=== PATIENT | female | born 1955 | race Caucasian/White ===

== ENCOUNTER 2019-03-03 13:02 | Inpatient (IN) | payer OTHER ==
--- NOTE | 2019-03-03 13:30 | Emergency Department Report ---
Chief Complaint: High BP Stated Complaint: BP HIGH - HPI History of Present Illness: 63yo Female (language barrier) presents with CP and elevated BP x 1 day. She states that she has been taking her medication as directed. - Exam Vital Signs: Vital Signs 03/03/19 13:25 Pulse Rate 65 Respiratory 16 Rate Blood Pressure 175/68 [Left] O2 Sat by Pulse 99 Oximetry MSE screening note: Focused history and physical exam performed. Due to findings the following was ordered: ED Disposition for MSE Condition: Stable
[2019-03-03] MEDS ORDERED: ASPIRIN 325 MG TAB PO ONE (13:33)
--- NOTE | 2019-03-03 13:50 | XRay Report ---
CHEST 1 VIEW INDICATION: Chest Pain. COMPARISON: None. FINDINGS: Support devices: None. Heart: Within normal limits. Lungs/Pleura: No acute air space or interstitial disease. Additional findings: None. IMPRESSION: 1. No acute findings. Signer Name: Jorge Fleming MD Signed: 03/03/2019 1:46 PM Workstation Name: [id number]
[2019-03-03 14:08] LABS: Basophils # (Auto) 0.1 K/mm3 (0.0-0.1); Basophils % (Auto) 0.9 % (0.0-1.8); Eosinophils # (Auto) 0.1 K/mm3 (0.0-0.4); Eosinophils % (Auto) 0.8 % (0.0-4.3); Hematocrit 38.6 % (30.3-42.9); Hemoglobin 13.2 gm/dl (10.1-14.3); Lymphocytes # (Auto) 2.4 K/mm3 (1.2-5.4); Lymphocytes % (Auto) 35.9 % (13.4-35.0); Mean Corpuscular HGB Conc 34 % (30-34); Mean Corpuscular Volume 88 fl (79-97); Monocytes # (Auto) 0.5 K/mm3 (0.0-0.8); Monocytes % (Auto) 7.8 % (0.0-7.3); Platelet Count 218 K/mm3 (140-440); Red Blood Count 4.38 M/mm3 (3.65-5.03); Red Cell Distribution Width 13.2 % (13.2-15.2)
[2019-03-03 14:29] LABS: BUN/Creatinine Ratio 24; Blood Urea Nitrogen 17 mg/dL (7-17); Calcium 9.4 mg/dL (8.4-10.2); Hemolysis Index 1
--- NOTE | 2019-03-03 15:07 | Emergency Department Report ---
ED Chest Pain HPI - General Chief Complaint: High BP Stated Complaint: BP HIGH Time Seen by Provider: 03/03/19 14:35 Source: patient Mode of arrival: Ambulatory Limitations: Language Barrier - History of Present Illness Initial Comments: 63-year-old female with a past medical history of hypertension presents to the hospital complaining of chest pain intermittent times one week. Pain is substernal and left-sided, feels like a squeezing, with no aggravating or alleviating factors. Patient has intermittent nausea without vomiting. She denies shortness of breath, diaphoresis, calf tenderness, leg edema, or recent travel, hx of dvt/pe, or smoking. + FHX of CAD. Patient has had palpitations for 3-4 months. Patient wore a holter monitor and had it removed recently. She is scheduled for oupt stress test and echo 03/07. Severity scale (0 -10): 5 - Related Data Allergies Allergy/AdvReac Type Severity Reaction Status Date / Time No Known Allergies Allergy Verified 03/03/19 13:31 Heart Score - HEART Score History: Moderately suspicious EKG: Normal Age: 45-65 Risk factors: 1-2 risk factors Troponin: < normal limit HEART Score: 3 ED Review of Systems ROS: Stated complaint: BP HIGH Other details as noted in HPI Comment: All other systems reviewed and negative ED Past Medical Hx - Past Medical History Previous Medical History?: Yes Hx Hypertension: Yes - Social History Smoking Status: Never Smoker Substance Use Type: None ED Physical Exam - General Limitations: Language Barrier - Other Other exam information: General: No acute distress Head: Atraumatic Eyes: normal appearance ENT: Moist mucous membranes Neck: Normal appearance, no midline tenderness Chest: Clear to auscultation bilaterally CV: Regular rate and rhythm Abdomen: Soft, normal bowel sounds, nontender, nondistended, no rebound or guarding Back: Normal inspection Extremity: Normal inspection infection, full range of motion, no calf tenderness or leg edema Neuro: Alert O x 3, no facial asymmetry, speech clear, no gross motor sensory deficit Psych: Appropriate behavior Skin: No rash ED Course Vital Signs 03/03/19 03/03/19 13:25 14:54 Pulse Rate 65 Respiratory 16 17 Rate Blood Pressure 175/68 [Left] O2 Sat by Pulse 99 99 Oximetry - Consultations Consultation #1: 03/03/19 14:52 Is discussed with Pakeitha White gurinder card. Patient will be admitted for inpatient workup ALL score - All Score Age > 65: (0) No Aspirin use within the Past 7 Days: (0) No 3 or more CAD Risk Factors: (0) No 2 or more Angina events in past 24 hrs: (1) Yes Known CAD with more than 50% Stenosis: (0) No Elevated Cardiac Markers: (0) No ED Medical Decision Making - Lab Data Result diagrams: 03/03/19 13:47 03/03/19 13:47 Lab Results 03/03/19 03/03/19 Range/Units 13:47 13:47 WBC 6.7 (4.5-11.0) K/mm3 RBC 4.38 (3.65-5.03) M/mm3 Hgb 13.2 (10.1-14.3) gm/dl Hct 38.6 (30.3-42.9) % MCV 88 (79-97) fl MCH 30 (28-32) pg MCHC 34 (30-34) % RDW 13.2 (13.2-15.2) % Plt Count 218 (140-440) K/mm3 Lymph % (Auto) 35.9 H (13.4-35.0) % [place] % (Auto) 7.8 H (0.0-7.3) % Eos % (Auto) 0.8 (0.0-4.3) % Baso % (Auto) 0.9 (0.0-1.8) % Lymph # 2.4 (1.2-5.4) K/mm3 [place] # 0.5 (0.0-0.8) K/mm3 Eos # 0.1 (0.0-0.4) K/mm3 Baso # 0.1 (0.0-0.1) K/mm3 Seg Neutrophils % 54.6 (40.0-70.0) % Seg Neutrophils # 3.7 (1.8-7.7) K/mm3 Sodium 142 (137-145) mmol/L Potassium 4.1 (3.6-5.0) mmol/L Chloride 105.8 (98-107) mmol/L Carbon Dioxide 24 (22-30) mmol/L Anion Gap 16 mmol/L BUN 17 (7-17) mg/dL Creatinine 0.7 (0.7-1.2) mg/dL Estimated GFR > 60 ml/min BUN/Creatinine Ratio 24 % Glucose 107 H (65-100) mg/dL Calcium 9.4 (8.4-10.2) mg/dL Troponin T < 0.010 (0.00-0.029) ng/mL - EKG Data -: EKG Interpreted by Me EKG shows normal: sinus rhythm, QRS complexes Rate: bradycardia (59) - EKG Data When compared to previous EKG there are: previous EKG unavailable - Radiology Data Radiology results: report reviewed CHEST 1 VIEW INDICATION: Chest Pain. COMPARISON: None. FINDINGS: Support devices: None. Heart: Within normal limits. Lungs/Pleura: No acute air space or interstitial disease. Additional findings: None. IMPRESSION: 1. No acute findings. - Medical Decision Making She presents with intermittent chest pain. - Differential Diagnosis UT, unstable angina, arrhythmia, Critical Care Time: No Critical care attestation.: If time is entered above; I have spent that time in minutes in the direct care of this critically ill patient, excluding procedure time. ED Disposition Clinical Impression: Chest pain, HTN (hypertension), Palpitations Disposition: DC-09 OP ADMIT IP TO THIS HOSP Is pt being admited?: Yes Does the pt Need Aspirin: Yes Condition: Stable Time of Disposition: 15:08 (Dr Lal/hosp)
[2019-03-03] MEDS ORDERED: NITROGLYCERIN 0.4 MG TAB SUBL SL PRN (15:14)
[2019-03-03] MEDS ORDERED: ALBUTEROL 2.5 MG/3 ML NEBU IH PRN (15:14)
[2019-03-03] MEDS ORDERED: ONDANSETRON 4 MG/2 ML INJ IV PRN (15:14)
--- NOTE | 2019-03-03 15:14 | History and Physical Report ---
History of Present Illness Chief complaint: My chest hurts History of present illness: 63 YO Female with HTN presents to ED for evaluation. Pt states that she has experienced pain in her chest over the past 1 week, with increasing intensity and frequency of the pain over the past 2 days. Pt states that pain is 5-6/10, substernal, crushing in nature, associated with nausea, and feels like "weight is on my chest". Pt denies worsening with exertion or relief with rest. Pt notified her PCP who then instructed pt to seek further care at [facility]. Pt transported to [facility] via private vehicle. Pt seen and evaluated in ED and found to have Angina. Pt placed in Observation status and admitted to telemetry. Cardiology team consulted in ED. Pt denies fever, chills, palpitations, BRBPR, Productive cough, unilateral leg swelling, calf pain, prolonged travel/immobility, hemoptysis, individual/family history of DVT/PE/Bleeding/B lood Clotting Disorders. No prior admission for review. No medication listed for reconciliation at time of admission. Past History Past Medical History: hypertension Past Surgical History: No surgical history, Other (reviewed) Social history: single. denies: smoking, alcohol abuse, prescription drug abuse Family history: diabetes, hypertension Medications and Allergies Allergies Allergy/AdvReac Type Severity Reaction Status Date / Time No Known Allergies Allergy Verified 03/03/19 13:31 Review of Systems Constitutional: no weight loss, no weight gain, no fever, no chills Ears, nose, mouth and throat: no ear pain, no ear discharge, no decreased hearing, no nose pain Breasts: no change in shape, no swelling, no mass Cardiovascular: no chest pain, no orthopnea, no palpitations, no rapid/irregular heart beat Respiratory: no cough, no cough with sputum, no excessive sputum, no hemoptysis Gastrointestinal: no abdominal pain, no nausea, no vomiting, no diarrhea, no constipation Genitourinary Female: no dysmenorrhea, no pelvic pain, no flank pain, no menorrhagia, no dysuria, no urinary frequency, no urgency, no stress incontinence Rectal: no pain, no incontinence, no bleeding Musculoskeletal: no neck pain, no shooting arm pain, no arm numbness/tingling, no low back pain, no shooting leg pain Integumentary: no rash, no pruritis, no redness, no sores, no wounds Neurological: no transient paralysis, no paralysis, no weakness, no parathesias, no numbness, no tingling, no seizures, no syncope Psychiatric: no anxiety, no memory loss, no change in sleep habits, no insomnia, no hypersomnia, no change in appetite, no suicidal ideation Endocrine: no cold intolerance, no heat intolerance, no polyphagia, no excessive thirst, no polydipsia, no polyuria, no excessive sweating Hematologic/Lymphatic: no easy bruising, no easy bleeding, no lymphadenopathy, no lymphedema Allergic/Immunologic: no urticaria, no allergic rhinitis, no persistent infections, no anaphylaxis, no angioedema Exam - Constitutional Vitals: Temp Pulse Resp BP Pulse Ox 65 17 175/68 99 03/03/19 13:25 03/03/19 14:54 03/03/19 13:25 03/03/19 14:54 General appearance: Present: mild distress - EENT Eyes: Present: PERRL ENT: hearing intact, clear oral mucosa - Neck Neck: Present: supple, normal ROM - Respiratory Respiratory effort: normal Respiratory: bilateral: CTA - Cardiovascular Heart Sounds: Present: S1 & S2. Absent: rub, click - Extremities Extremities: pulses symmetrical, No edema Peripheral Pulses: within normal limits - Abdominal General gastrointestinal: Present: soft, non-tender, non-distended, normal bowel sounds Female genitourinary: Present: normal - Integumentary Integumentary: Present: clear, warm, dry - Musculoskeletal Musculoskeletal: gait normal, strength equal bilaterally - Psychiatric Psychiatric: appropriate mood/affect, intact judgment & insight - Neurologic Neurologic: CNII-XII intact, moves all extremities Results - Labs CBC & Chem 7: 03/03/19 13:47 03/03/19 13:47 Labs: Abnormal lab results 03/03/19 03/03/19 Range/Units 13:47 13:47 Lymph % (Auto) 35.9 H (13.4-35.0) % [place] % (Auto) 7.8 H (0.0-7.3) % Glucose 107 H (65-100) mg/dL Assessment and Plan - Patient Problems (1) Angina at rest Current Visit: Yes Status: Acute Plan to address problem: Admit to telemetry, serial cardiac enzymes, ekg, cardiology consulted in ED, (2) HTN (hypertension) Current Visit: Yes Status: Acute Qualifiers: Hypertension type: essential hypertension Qualified Code(s): I10 - Essential (primary) hypertension Plan to address problem: Monitor bp q shift, continue medical management. (3) DVT prophylaxis Current Visit: Yes Status: Acute Plan to address problem: SCD to BLE while in bed, Pt ambulatory
[2019-03-03] MEDS ORDERED: ASPIRIN 81 MG TAB CHEW PO STA (15:21)
[2019-03-03 16:47] LABS: Chol/HDL Ratio 4.05 %
[2019-03-03] MEDS: FAMOTIDINE 10 MG TAB PO SCH (21:33)
[2019-03-04 05:05] LABS: Basophils # (Auto) 0.1 K/mm3 (0.0-0.1); Basophils % (Auto) 0.9 % (0.0-1.8); Eosinophils # (Auto) 0.1 K/mm3 (0.0-0.4); Eosinophils % (Auto) 1.9 % (0.0-4.3); Hematocrit 37.5 % (30.3-42.9); Hemoglobin 12.7 gm/dl (10.1-14.3); Lymphocytes # (Auto) 2.9 K/mm3 (1.2-5.4); Lymphocytes % (Auto) 44.9 % (13.4-35.0); Mean Corpuscular HGB Conc 34 % (30-34); Mean Corpuscular Volume 89 fl (79-97); Monocytes # (Auto) 0.5 K/mm3 (0.0-0.8); Monocytes % (Auto) 8.4 % (0.0-7.3); Platelet Count 198 K/mm3 (140-440); Red Blood Count 4.21 M/mm3 (3.65-5.03); Red Cell Distribution Width 13.2 % (13.2-15.2)
[2019-03-04 05:29] LABS: Alanine Aminotransferase 16 units/L (7-56); Albumin 3.9 g/dL (3.9-5); BUN/Creatinine Ratio 35; Blood Urea Nitrogen 21 mg/dL (7-17); Calcium 8.9 mg/dL (8.4-10.2); Hemolysis Index 5
[2019-03-04] MEDS: FAMOTIDINE 10 MG TAB PO SCH ×2 (09:13→22:31)
[2019-03-04] MEDS: ACETAMINOPHEN 325 MG TAB PO PRN ×2 (09:13→18:41)
--- NOTE | 2019-03-04 10:34 | Consultation ---
History of Present Illness Consult date: 03/04/19 Consult reason: chest pain History of present illness: 63 year old female presenting with chest pain at rest was admitted for evaluation. She also has back pain with radiation of pain down her right leg. Past History Past Medical History: hypertension Past Surgical History: No surgical history, Other (reviewed) Social history: single. denies: smoking, alcohol abuse, prescription drug abuse Family history: diabetes, hypertension Medications and Allergies Allergies Allergy/AdvReac Type Severity Reaction Status Date / Time No Known Allergies Allergy Verified 03/03/19 13:31 Home Medications Medication Instructions Recorded Confirmed Last Taken Type Bisoprolol Fumarate 2.5 mg PO BID 03/03/19 03/03/19 Unknown History Active Meds: Active Medications Acetaminophen (Tylenol) 650 mg PO Q4H PRN PRN Reason: Pain MILD(1-3)/Fever >100.5/BRADLEY Last Admin: 03/04/19 09:13 Dose: 650 mg Documented by: Albuterol (Proventil) 2.5 mg IH Q4HRT PRN PRN Reason: Shortness Of Breath Famotidine (Pepcid) 10 mg PO BID [facility] Last Admin: 03/04/19 09:13 Dose: 10 mg Documented by: Morphine Sulfate (Morphine) 2 mg IV Q4H PRN PRN Reason: Pain, Moderate (4-6) Nitroglycerin (Nitrostat) 0.4 mg SL Q5M PRN PRN Reason: Chest Pain Ondansetron HCl (Zofran) 4 mg IV Q8H PRN PRN Reason: Nausea And Vomiting Sodium Chloride (Sodium Chloride Flush Syringe 10 Ml) 10 ml IV BID [facility] Last Admin: 03/04/19 09:14 Dose: 10 ml Documented by: Sodium Chloride (Sodium Chloride Flush Syringe 10 Ml) 10 ml IV PRN PRN PRN Reason: LINE FLUSH Review of Systems All systems: negative Cardiovascular: chest pain Musculoskeletal: low back pain Physical Examination Vital Signs Pulse Resp BP Pulse Ox 65 16 175/68 99 03/03/19 13:25 03/03/19 13:25 03/03/19 13:25 03/03/19 13:25 General appearance: no acute distress, well-nourished HEENT: Positive: PERRL, Mucus Membranes Moist Neck: Positive: neck supple, trachea midline Cardiac: Positive: Reg Rate and Rhythm, S1/S2. Negative: Audible Murmur Lungs: Positive: clear to auscultation, Normal Breath Sounds Neuro: Positive: Grossly Intact Abdomen: Positive: Soft, Active Bowel Sounds. Negative: Tender, Distended Female genitourinary: deferred Skin: Positive: Clear Incision: Cardiac Cath Site Musculoskeletal: No Pain, Normal Range of Motion Extremities: Present: normal. Absent: edema Results 03/04/19 04:40 03/04/19 04:40 Cardiac Enzymes 03/04/19 Range/Units 04:40 AST 18 (5-40) units/L Lipids 03/03/19 Range/Units 15:27 Triglycerides 115 (2-149) mg/dL Cholesterol 231 H (50-199) mg/dL HDL Cholesterol 57 (40-59) mg/dL Cholesterol/HDL Ratio 4.05 % CBC 03/03/19 03/04/19 Range/Units 13:47 04:40 WBC 6.7 6.5 (4.5-11.0) K/mm3 RBC 4.38 4.21 (3.65-5.03) M/mm3 Hgb 13.2 12.7 (10.1-14.3) gm/dl Hct 38.6 37.5 (30.3-42.9) % Plt Count 218 198 (140-440) K/mm3 Lymph # 2.4 2.9 (1.2-5.4) K/mm3 [place] # 0.5 0.5 (0.0-0.8) K/mm3 Eos # 0.1 0.1 (0.0-0.4) K/mm3 Baso # 0.1 0.1 (0.0-0.1) K/mm3 Comprehensive Metabolic Panel 03/03/19 03/04/19 Range/Units 13:47 04:40 Sodium 142 142 (137-145) mmol/L Potassium 4.1 4.4 (3.6-5.0) mmol/L Chloride 105.8 105.8 (98-107) mmol/L Carbon Dioxide 24 24 (22-30) mmol/L BUN 17 21 H (7-17) mg/dL Creatinine 0.7 0.6 L (0.7-1.2) mg/dL Glucose 107 H 99 (65-100) mg/dL Calcium 9.4 8.9 (8.4-10.2) mg/dL AST 18 (5-40) units/L ALT 16 (7-56) units/L Alkaline Phosphatase 57 (35-129) units/L Total Protein 6.2 L (6.3-8.2) g/dL Albumin 3.9 (3.9-5) g/dL - EKG Interpretation EKG: sinus rhythm, normal axis EKG interpretations - Telemetry EKG Rhythm: Sinus Rhythm Assessment and Plan 1. Atypical chest pain 2. Essential hypertension 3. Lumbar global with sciatica right leg 4. Hyperlipidemia Plan. Currently chest pain-free patient's serum troponin levels so far are negative we will recommend checking echocardiogram as well aswell as stress Lexiscan MPI
--- NOTE | 2019-03-04 12:17 | Progress Note ---
Assessment and Plan Assessment and plan: Chest pain. Troponin levels are negative. EKG within normal limits. Cardiology recommends echocardiogram and Lexiscan stress test. Hypertension. Continue antihypertensive medications. Sciatica. Continue pain control. Supportive care Hyperlipidemia. Start Lipitor daily. History Interval history: No new issues overnight. Hospitalist Physical - Constitutional Vitals: Temp Pulse Resp BP Pulse Ox 97.9 F 64 16 121/54 96 03/04/19 08:00 03/04/19 08:00 03/04/19 08:00 03/04/19 08:00 03/04/19 08:00 General appearance: Present: no acute distress, well-nourished - EENT Eyes: Present: PERRL, EOM intact ENT: hearing intact, clear oral mucosa, dentition normal - Neck Neck: Present: supple, normal ROM - Respiratory Respiratory effort: normal Respiratory: bilateral: CTA - Cardiovascular Rhythm: regular Heart Sounds: Present: S1 & S2. Absent: gallop, rub - Extremities Extremities: no ischemia, No edema, Full ROM - Abdominal General gastrointestinal: soft, non-tender, non-distended, normal bowel sounds - Integumentary Integumentary: Present: clear, warm, dry - Neurologic Neurologic: CNII-XII intact, moves all extremities Results - Labs CBC & Chem 7: 03/04/19 04:40 03/04/19 04:40 Labs: Laboratory Last Values WBC 6.5 K/mm3 (4.5-11.0) 03/04/19 04:40 RBC 4.21 M/mm3 (3.65-5.03) 03/04/19 04:40 Hgb 12.7 gm/dl (10.1-14.3) 03/04/19 04:40 Hct 37.5 % (30.3-42.9) 03/04/19 04:40 MCV 89 fl (79-97) 03/04/19 04:40 MCH 30 pg (28-32) 03/04/19 04:40 MCHC 34 % (30-34) 03/04/19 04:40 RDW 13.2 % (13.2-15.2) 03/04/19 04:40 Plt Count 198 K/mm3 (140-440) 03/04/19 04:40 Lymph % (Auto) 44.9 % (13.4-35.0) H 03/04/19 04:40 [place] % (Auto) 8.4 % (0.0-7.3) H 03/04/19 04:40 Eos % (Auto) 1.9 % (0.0-4.3) 03/04/19 04:40 Baso % (Auto) 0.9 % (0.0-1.8) 03/04/19 04:40 Lymph # 2.9 K/mm3 (1.2-5.4) 03/04/19 04:40 [place] # 0.5 K/mm3 (0.0-0.8) 03/04/19 04:40 Eos # 0.1 K/mm3 (0.0-0.4) 03/04/19 04:40 Baso # 0.1 K/mm3 (0.0-0.1) 03/04/19 04:40 Seg Neutrophils % 43.9 % (40.0-70.0) 03/04/19 04:40 Seg Neutrophils # 2.8 K/mm3 (1.8-7.7) 03/04/19 04:40 D-Dimer 136.80 ng/mlDDU (0-234) 03/03/19 15:27 Sodium 142 mmol/L (137-145) 03/04/19 04:40 Potassium 4.4 mmol/L (3.6-5.0) 03/04/19 04:40 Chloride 105.8 mmol/L (98-107) 03/04/19 04:40 Carbon Dioxide 24 mmol/L (22-30) 03/04/19 04:40 Anion Gap 17 mmol/L 03/04/19 04:40 BUN 21 mg/dL (7-17) H 03/04/19 04:40 Creatinine 0.6 mg/dL (0.7-1.2) L 03/04/19 04:40 Estimated GFR > 60 ml/min 03/04/19 04:40 BUN/Creatinine Ratio 35 % 03/04/19 04:40 Glucose 99 mg/dL (65-100) 03/04/19 04:40 Calcium 8.9 mg/dL (8.4-10.2) 03/04/19 04:40 Total Bilirubin 0.20 mg/dL (0.1-1.2) 03/04/19 04:40 AST 18 units/L (5-40) 03/04/19 04:40 ALT 16 units/L (7-56) 03/04/19 04:40 Alkaline Phosphatase 57 units/L (35-129) 03/04/19 04:40 Troponin T < 0.010 ng/mL (0.00-0.029) 03/03/19 17:53 Total Protein 6.2 g/dL (6.3-8.2) L 03/04/19 04:40 Albumin 3.9 g/dL (3.9-5) 03/04/19 04:40 Albumin/Globulin Ratio 1.7 % 03/04/19 04:40 Triglycerides 115 mg/dL (2-149) 03/03/19 15:27 Cholesterol 231 mg/dL (50-199) H 03/03/19 15:27 LDL Cholesterol Direct 179 mg/dL (50-130) H 03/03/19 15:27 HDL Cholesterol 57 mg/dL (40-59) 03/03/19 15:27 Cholesterol/HDL Ratio 4.05 % 03/03/19 15:27 Active Medications - Current Medications Current Medications: Generic Name Dose Route Start Last Admin Trade Name Freq PRN Reason Stop Dose Admin Acetaminophen 650 mg 03/03/19 15:14 03/04/19 09:13 Tylenol PO 650 mg Q4H PRN Administration Pain MILD(1-3)/Fever >100.5/BRADLEY Albuterol 2.5 mg 03/03/19 15:14 Proventil IH Q4HRT PRN Shortness Of Breath Famotidine 10 mg 03/03/19 22:00 03/04/19 09:13 Pepcid PO 10 mg BID JUDD Administration Morphine Sulfate 2 mg 03/03/19 15:21 Morphine IV Q4H PRN Pain, Moderate (4-6) Nitroglycerin 0.4 mg 03/03/19 15:14 Nitrostat SL Q5M PRN Chest Pain Ondansetron HCl 4 mg 03/03/19 15:14 Zofran IV Q8H PRN Nausea And Vomiting Sodium Chloride 10 ml 03/03/19 22:00 03/04/19 09:14 Sodium Chloride Flush Syringe 10 Ml IV 10 ml BID JUDD Administration Sodium Chloride 10 ml 03/03/19 15:14 Sodium Chloride Flush Syringe 10 Ml IV PRN PRN LINE FLUSH
[2019-03-05] MEDS: MORPHINE 2 MG/1 ML INJ IV PRN ×2 (04:18→10:21)
--- NOTE | 2019-03-05 10:11 | Progress Note ---
Assessment and Plan 1. Atypical chest pain 2. Essential hypertension 3. Lumbar global with sciatica right leg 4. Hyperlipidemia Plan. Currently chest pain-free patient's serum troponin levels so far are negative we will recommend checking echocardiogram as well as well as stress Lexiscan MPI Subjective Date of service: 03/05/19 Principal diagnosis: Chest pains Interval history: No cardiac symptoms. Objective Vital Signs Temp Pulse Resp BP Pulse Ox 03/05/19 08:16 97.9 F 58 L 16 140/62 98 03/05/19 04:11 97.8 F 65 18 136/62 98 03/05/19 02:00 60 03/05/19 00:14 98.5 F 61 18 128/68 96 03/04/19 20:40 18 03/04/19 19:49 98.2 F 62 18 129/63 97 03/04/19 19:13 98 03/04/19 16:11 98.4 F 62 16 117/44 97 03/04/19 12:10 98.2 F 18 03/04/19 12:09 98.7 F 62 18 113/57 95 - Physical Examination General: Appears Well HEENT: Positive: PERRL, Mucus Membranes Moist Neck: Positive: neck supple, trachea midline Cardiac: Positive: Reg Rate and Rhythm, Regular Rate, S1/S2, PMI, Dilated, Laterally Displaced. Negative: S3 Lungs: Positive: clear to auscultation, No Wheeze, Rales, Rhonchi Neuro: Positive: Grossly Intact, No Lateralizing Findings Abdomen: Positive: Soft, Active Bowel Sounds. Negative: Tender, Distended Skin: Positive: Clear Incision: Cardiac Cath Site Musculoskeletal: No Pain, Normal Range of Motion Extremities: Present: normal. Absent: edema
[2019-03-05] MEDS: FAMOTIDINE 10 MG TAB PO SCH ×2 (10:21→21:57)
--- NOTE | 2019-03-05 10:23 | Progress Note ---
Assessment and Plan Assessment and plan: Chest pain. Troponin levels are negative. EKG within normal limits. Cardiology recommends echocardiogram and Lexiscan stress test. Hypertension. Continue antihypertensive medications. Sciatica. Continue pain control. Supportive care Hyperlipidemia. Continue Lipitor daily. History Interval history: No new issues overnight. Hospitalist Physical - Constitutional Vitals: Temp Pulse Resp BP Pulse Ox 97.9 F 58 L 16 140/62 98 03/05/19 08:16 03/05/19 08:16 03/05/19 08:16 03/05/19 08:16 03/05/19 08:16 General appearance: Present: no acute distress, well-nourished - EENT Eyes: Present: PERRL, EOM intact ENT: hearing intact, clear oral mucosa, dentition normal - Neck Neck: Present: supple, normal ROM - Respiratory Respiratory effort: normal Respiratory: bilateral: CTA - Cardiovascular Rhythm: regular Heart Sounds: Present: S1 & S2. Absent: gallop, rub - Extremities Extremities: no ischemia, No edema, Full ROM - Abdominal General gastrointestinal: soft, non-tender, non-distended, normal bowel sounds - Integumentary Integumentary: Present: clear, warm, dry - Neurologic Neurologic: CNII-XII intact, moves all extremities Results - Labs CBC & Chem 7: 03/04/19 04:40 03/04/19 04:40 Labs: Laboratory Last Values WBC 6.5 K/mm3 (4.5-11.0) 03/04/19 04:40 RBC 4.21 M/mm3 (3.65-5.03) 03/04/19 04:40 Hgb 12.7 gm/dl (10.1-14.3) 03/04/19 04:40 Hct 37.5 % (30.3-42.9) 03/04/19 04:40 MCV 89 fl (79-97) 03/04/19 04:40 MCH 30 pg (28-32) 03/04/19 04:40 MCHC 34 % (30-34) 03/04/19 04:40 RDW 13.2 % (13.2-15.2) 03/04/19 04:40 Plt Count 198 K/mm3 (140-440) 03/04/19 04:40 Lymph % (Auto) 44.9 % (13.4-35.0) H 03/04/19 04:40 [place] % (Auto) 8.4 % (0.0-7.3) H 03/04/19 04:40 Eos % (Auto) 1.9 % (0.0-4.3) 03/04/19 04:40 Baso % (Auto) 0.9 % (0.0-1.8) 03/04/19 04:40 Lymph # 2.9 K/mm3 (1.2-5.4) 03/04/19 04:40 [place] # 0.5 K/mm3 (0.0-0.8) 03/04/19 04:40 Eos # 0.1 K/mm3 (0.0-0.4) 03/04/19 04:40 Baso # 0.1 K/mm3 (0.0-0.1) 03/04/19 04:40 Seg Neutrophils % 43.9 % (40.0-70.0) 03/04/19 04:40 Seg Neutrophils # 2.8 K/mm3 (1.8-7.7) 03/04/19 04:40 D-Dimer 136.80 ng/mlDDU (0-234) 03/03/19 15:27 Sodium 142 mmol/L (137-145) 03/04/19 04:40 Potassium 4.4 mmol/L (3.6-5.0) 03/04/19 04:40 Chloride 105.8 mmol/L (98-107) 03/04/19 04:40 Carbon Dioxide 24 mmol/L (22-30) 03/04/19 04:40 Anion Gap 17 mmol/L 03/04/19 04:40 BUN 21 mg/dL (7-17) H 03/04/19 04:40 Creatinine 0.6 mg/dL (0.7-1.2) L 03/04/19 04:40 Estimated GFR > 60 ml/min 03/04/19 04:40 BUN/Creatinine Ratio 35 % 03/04/19 04:40 Glucose 99 mg/dL (65-100) 03/04/19 04:40 Calcium 8.9 mg/dL (8.4-10.2) 03/04/19 04:40 Total Bilirubin 0.20 mg/dL (0.1-1.2) 03/04/19 04:40 AST 18 units/L (5-40) 03/04/19 04:40 ALT 16 units/L (7-56) 03/04/19 04:40 Alkaline Phosphatase 57 units/L (35-129) 03/04/19 04:40 Troponin T < 0.010 ng/mL (0.00-0.029) 03/03/19 17:53 Total Protein 6.2 g/dL (6.3-8.2) L 03/04/19 04:40 Albumin 3.9 g/dL (3.9-5) 03/04/19 04:40 Albumin/Globulin Ratio 1.7 % 03/04/19 04:40 Triglycerides 115 mg/dL (2-149) 03/03/19 15:27 Cholesterol 231 mg/dL (50-199) H 03/03/19 15:27 LDL Cholesterol Direct 179 mg/dL (50-130) H 03/03/19 15:27 HDL Cholesterol 57 mg/dL (40-59) 03/03/19 15:27 Cholesterol/HDL Ratio 4.05 % 03/03/19 15:27 Active Medications - Current Medications Current Medications: Generic Name Dose Route Start Last Admin Trade Name Freq PRN Reason Stop Dose Admin Acetaminophen 650 mg 03/03/19 15:14 03/04/19 18:41 Tylenol PO 650 mg Q4H PRN Administration Pain MILD(1-3)/Fever >100.5/BRADLEY Albuterol 2.5 mg 03/03/19 15:14 Proventil IH Q4HRT PRN Shortness Of Breath Atorvastatin Calcium 40 mg 03/04/19 22:00 03/04/19 22:31 Lipitor PO 40 mg QHS JUDD Administration Famotidine 10 mg 03/03/19 22:00 03/05/19 10:21 Pepcid PO 10 mg BID JUDD Administration Morphine Sulfate 2 mg 03/03/19 15:21 03/05/19 10:21 Morphine IV 2 mg Q4H PRN Administration Pain, Moderate (4-6) Nitroglycerin 0.4 mg 03/03/19 15:14 Nitrostat SL Q5M PRN Chest Pain Ondansetron HCl 4 mg 03/03/19 15:14 Zofran IV Q8H PRN Nausea And Vomiting Sodium Chloride 10 ml 03/03/19 22:00 03/05/19 10:21 Sodium Chloride Flush Syringe 10 Ml IV 10 ml BID JUDD Administration Sodium Chloride 10 ml 03/03/19 15:14 Sodium Chloride Flush Syringe 10 Ml IV PRN PRN LINE FLUSH
[2019-03-05] MEDS: ACETAMINOPHEN 325 MG TAB PO PRN (12:01)
[2019-03-06] MEDS ORDERED: REGADENOSON 0.4 MG/5 ML INJ IV ONE ×2 (07:12→07:20)
[2019-03-06] MEDS: FAMOTIDINE 10 MG TAB PO SCH (11:13)
--- NOTE | 2019-03-06 12:25 | Discharge Summary ---
Providers - Providers Date of Admission: 03/03/19 15:14 Date of discharge: 03/06/19 Attending physician: NIK JIM 03/03/19 Consult to Cardiac Rehabilitation [CONS] Routine Reason For Exam: Phase I 03/03/19 14:52 Consult to Physician [CONS] Urgent Comment: Consulting Provider: JALEEL HAMMOND Physician Instructions: Reason For Exam: chest pain Hospitalization Reason for admission: chest pain Condition: Stable Hospital course: 63-year-old female with past medical history of hypertension presented through the emergency department with complaints of chest pain for approximately one week prior to admission. The patient described the pain as 5-6/10, substernal, crushing in nature, associated with nausea, and of a pressure quality. EKG and cardiac isoenzymes were found to be negative. Cardiology was consulted and recommended stress test and echocardiogram. Echocardiogram revealed global left ventricular systolic function normal with EF of 55-60%. Stress test was completed this morning and if negative patient will be discharged home. Etiology of chest pain likely GERD. Dedicated discharge time 35 minutes. Disposition: TO HOME OR SELFCARE Time spent for discharge: 35 - Discharge Diagnoses (1) Chest pain Status: Acute (2) HTN (hypertension) Status: Acute Qualifiers: Hypertension type: essential hypertension Qualified Code(s): I10 - Essential (primary) hypertension (3) GERD (gastroesophageal reflux disease) Status: Acute Core Measure Documentation - Palliative Care Palliative Care/ Comfort Measures: Not Applicable - Core Measures Any of the following diagnoses?: none Exam - Constitutional Vitals: Temp Pulse Resp BP Pulse Ox 98.0 F 65 18 135/58 96 03/06/19 08:22 03/06/19 04:01 03/06/19 08:22 03/06/19 08:22 03/06/19 04:01 General appearance: Present: no acute distress, well-nourished - EENT Eyes: Present: PERRL ENT: hearing intact, clear oral mucosa - Neck Neck: Present: supple, normal ROM - Respiratory Respiratory effort: normal Respiratory: bilateral: CTA - Cardiovascular Heart Sounds: Present: S1 & S2. Absent: rub, click - Extremities Extremities: pulses symmetrical, No edema Peripheral Pulses: within normal limits - Abdominal General gastrointestinal: Present: soft, non-tender, non-distended, normal bowel sounds Female genitourinary: Present: normal - Integumentary Integumentary: Present: clear, warm, dry - Musculoskeletal Musculoskeletal: gait normal, strength equal bilaterally - Psychiatric Psychiatric: appropriate mood/affect, intact judgment & insight - Neurologic Neurologic: CNII-XII intact, moves all extremities Plan Activity: advance as tolerated Weight Bearing Status: Weight Bear as Tolerated Diet: regular Follow up with: JALEEL HADDAD MD [Other] - 7 Days
[2019-03-06 12:33] VITALS: BP 135/63
--- NOTE | 2019-03-06 13:37 | Progress Note ---
Assessment and Plan - Patient Problems (1) HTN (hypertension) Current Visit: Yes Status: Acute Qualifiers: Hypertension type: essential hypertension Qualified Code(s): I10 - Essential (primary) hypertension Plan to address problem: Hypertension which is a primary reason for presentation, is better controlled on medical therapy. Continue current antihypertensive regimen and discharge with c lose outpatient follow-up. (2) Atypical chest pain Current Visit: Yes Status: Acute Plan to address problem: Chest pain is atypical, serial ECGs are normal. Patient underwent a Lexiscan thallium stress test, results pending. Subjective Date of service: 03/06/19 Principal diagnosis: Chest pains Interval history: The patient is a 63-year-old speaking female, who was actually referred to the emergency room by her PCP for management of uncontrolled hypertension. While in the hospital, she reported some chest pain during review of systems, which prompted a recommendation for admission and cardiac workup. EKG was normal sinus rhythm, normal ECG. Today, she underwent a Lexiscan thallium stress test, results of which are pending. Notably, her systolic blood pressure was 175 on presentation, and with medical therapy is better controlled at 135 systolic. Objective Vital Signs Temp Pulse Resp BP BP Pulse Ox 03/06/19 12:19 98.2 F 18 135/63 03/06/19 10:09 159/73 03/06/19 10:08 163/70 03/06/19 10:07 161/68 03/06/19 10:06 148/73 03/06/19 10:05 163/88 03/06/19 10:03 147/79 03/06/19 10:01 141/78 03/06/19 10:00 0 L 151/72 98 03/06/19 09:48 146/70 03/06/19 08:22 98.0 F 18 135/58 03/06/19 04:01 98.3 F 65 16 131/66 96 03/05/19 23:43 98.4 F 78 16 135/57 95 03/05/19 22:47 0 L 98 03/05/19 19:58 98.4 F 69 16 131/66 97 03/05/19 19:45 69 03/05/19 17:00 64 03/05/19 16:35 97.9 F 71 18 120/55 94 03/05/19 16:33 97.9 F 70 16 120/55 94 - Physical Examination General: Appears Well HEENT: Positive: PERRL, Mucus Membranes Moist Neck: Positive: neck supple, trachea midline Cardiac: Positive: Reg Rate and Rhythm Lungs: Positive: clear to auscultation Neuro: Positive: Grossly Intact, No Lateralizing Findings Abdomen: Positive: Soft, Active Bowel Sounds. Negative: Tender, Distended Skin: Positive: Clear Incision: Cardiac Cath Site Musculoskeletal: No Pain, Normal Range of Motion Extremities: Absent: edema
--- NOTE | 2019-03-07 00:57 | Treadmill Report ---
THALLIUM STRESS TEST LEFT VENTRICLE: Left ventricular chamber size is within normal spread. Perfusion study demonstrates homogeneous uptake of the tracer in all segments, no significant defects identified. Gated analysis demonstrates normal left ventricular systolic function, ejection fraction of 77%. CONCLUSION: Normal myocardial perfusion study. JOB# [id number] CA/NTS
== END 2019-03-06 16:51 | disposition home or self-care (01) | DRG 392 ==
LOC: ED 13:02 → 4A 15:14 → OBSVTOIN 15:14 → 4A 16:22
PROVIDERS: ADMIT Internal Medicine; ATTEND Hospitalist
DX: K21.9 Gastro-esophageal reflux disease without esophagitis (principal); I20.8 Other forms of angina pectoris; I10 Essential (primary) hypertension; M54.31 Sciatica, right side; E78.5 Hyperlipidemia, unspecified; Z82.49 Family history of ischemic heart disease and other diseases of the circulatory system; Z83.3 Family history of diabetes mellitus
CPT/HCPCS: 36415; 71045; 78452; 80048; 80053; 80061; 84484; 85025; 85379; 93005; 93010; 93017; 93306; 96374; G0378; A9270-GY; A9502; J2270; J2405; J2785